=== PATIENT | male | born 2005 | race Caucasian/White ===

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

== ENCOUNTER 2023-04-28 20:52 | Emergency (ER) | payer OTHER, SELFPAY ==
[2023-04-28] VITALS (8 sets, daily range): BP systolic 124–125; BP diastolic 71–83; PULSE 77–94; RESP 18; TEMP 36.4; O2SAT 95–98
--- NOTE | 2023-04-28 21:19 | ED.GENADULT ---
HPI - General Adult General Chief complaint: Fall/Minor Trauma Stated complaint: hurt his left ankle and left wrist at work Time Seen by Provider: 04/28/23 21:06 History of Present Illness HPI narrative: pt fell 10-15 feet off a susanne face, landed on rock. Location was [facility] . Event was 1929. No LOC. No neck pain. CMS intact x 4, pt with pain reported left leg and left wrist. 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 Report of injury left wrist and ankle, though seems to be more the heel actually. Really hurts to walk on the left heel put pressure on that foot as well as ulnar deviate the left wrist as demonstrated. TTA upon arrival. Injury was about 2-1/2 hours at 630 with further recollection, prior to arrival in this emergency department. This was a fall to rock not a crash pad. He denies striking her injuring his abdomen. Has no neck or back pain. Not hit his head. There was no loss of consciousness. Has not had any difficulty breathing. Related Data Home Medications Medication Instructions Recorded Confirmed acetaminophen 500 mg capsule 500 mg PO Q4-6H PRN fever or pain 05/03/22 10/27/22 ibuprofen 200 mg capsule 400 mg PO Q4-6H PRN fever or pain 05/03/22 05/03/22 methylphenidate HCl 36 mg 36 mg PO QAM 05/03/22 10/27/22 tablet,extended release 24 hr (Concerta) Previous Rx's Medication Instructions Recorded omeprazole 40 mg capsule,delayed 40 mg PO DAILY #7 caps 10/27/22 release ondansetron 4 mg disintegrating 4 mg PO Q6H PRN nausea and 10/27/22 tablet vomiting #20 tabs Allergies Allergy/AdvReac Type Severity Reaction Status Date / Time No Known Drug Allergies Allergy Verified 10/27/22 14:13 Review of Systems Status of ROS: Reports: 6 or more systems reviewed and unremarkable except as noted in History and below PFSH PFSH Social History Smoking Status: Never smoker How often do you have a drink containing alcohol: never How often do you have six or more drinks on one occasion: Never AUDIT-C Alcohol total score: 0 Non-prescribed substance use: denies use Exam Narrative: Exam Narrative: Pleasant. Calm. Breathing easily. Does not appear to be actively bleeding. GCS 15. Pupils are 2 mm brisk and equal. Head looks to be atraumatic. Neck is supple nontender. Back nontender. Lungs are clear. Heart with mildly elevated rate and in a regular rhythm. Skin is warm and dry. There are abrasions at the base palmar surface of the left hand. One over the ulnar prominence. Dirt staining in the area. Abrasions warmth and some swelling at the left calf. Smaller abrasions also on the right mid lower leg. Right heel with pain to squeeze bilaterally. Does not have ankle malleolar area pain or pain to dorsum of the foot. No plantar bruising. Moving all extremities without difficulty. Did not test ambulatory ability though. Abdomen soft and nontender. No discomfort or instability to palpation of the pelvis. Const: Vital Signs, click to edit/add: Vital Signs - 24 hr 04/28/23 20:58 Temperature 97.6 F Pulse Rate [Left P ulse Oximeter] 92 Respiratory Rate 18 Blood Pressure [Ri ght Upper Arm] 124/83 Pulse Oximetry 98 Oxygen Delivery Me thod Room Air Documenting provider has reviewed patient's vital signs: yes Course Vital Signs Vital signs: Initial Vital Signs Temperature 97.6 F 04/28/23 20:58 Temperature Source Temporal Artery Scan 04/28/23 20:58 Pulse Rate 92 04/28/23 20:58 Pulse Rhythm Regular 04/28/23 20:58 Respiratory Rate 18 04/28/23 20:58 Blood Pressure 124/83 04/28/23 20:58 Blood Pressure Mean 96 04/28/23 20:58 Blood Pressure Position Sitting 04/28/23 20:58 Pulse Oximetry 98 04/28/23 20:58 Oxygen Delivery Method Room Air 04/28/23 20:58 Vital Signs Temperature 97.6 F 04/28/23 20:58 Pulse Rate 92 04/28/23 20:58 Respiratory Rate 18 04/28/23 20:58 Blood Pressure 124/83 04/28/23 20:58 Pulse Oximetry 98 04/28/23 20:58 Oxygen Delivery Method Room Air 04/28/23 20:58 Temperature 97.6 F 04/28/23 20:58 Pulse Rate 83 04/28/23 22:30 Respiratory Rate 18 04/28/23 20:58 Blood Pressure 125/71 04/28/23 21:12 Pulse Oximetry 97 04/28/23 22:30 Oxygen Delivery Method Room Air 04/28/23 20:58 Medical Decision Making MDM Narrative Medical decision making narrative: Mechanism is certainly concerning. Really though absent of evidence of injury or pain to palpation over the abdomen or thorax. I do not think that he has so much pain in his heel that it would be distracting. Imaging ordered for heel and wrist. Also given ibuprofen. Ice pack. X-rays of the heel reviewed by me to not a seem to show any bony abnormality. The left wrist is also absent of any acute bony abnormality. I appreciate some edema along the ulnar side of the wrist. Radiology over-read notes this edema wondering whether there might be some sort of occult fracture but recommending follow-up otherwise. Ordered for crutches. I do not think postop sandal are walking boot would be helpful as it is hurting primarily to bear weight on his heel. Did offer splint for his left wrist but he will have to manage crutches and he was not having so much discomfort that he felt it would be necessary; he declined. See patient discharge plan. Critical Care Time Critical Care Time Total Critical Care Time in Minutes: 35 Discharge Plan Discharge Clinical Impression: Injury of heel, Abrasion, Fall, Left wrist sprain Patient Disposition: Home w/ Parent or Adult Condition: Stable Additional Instructions: I would continue to ice these sore areas few times daily over the next few days. Hold the ice packs on with Franco wraps. Particularly for your wrist, if not improving over the next 7-10 days, consider follow-up for re-evaluation/imaging. Can take up to 800 mg of ibuprofen or up to 1000 mg of acetaminophen per dose. Alternative to the ibuprofen can take up to 500 mg naproxen 2 times daily. Remember that each tablet of Grey [place] contains 325 mg of acetaminophen. Grey Eagle from [facility]. Crutch over this next week to enable resting of your heel. I see begin to bear more weight will probably need stiff hiking boot with a deep heel cup/insole to support. Prescriptions: No Action methylphenidate HCl [Concerta] 36 mg tablet extended release 24hr 36 mg PO QAM Patient Comments: TAKE 1 TABLET BY MOUTH DAILY IN THE MORNING acetaminophen 500 mg capsule 500 mg PO Q4-6H PRN (Reason: fever or pain) ibuprofen 200 mg capsule 400 mg PO Q4-6H PRN (Reason: fever or pain) omeprazole 40 mg capsule,delayed release(DR/EC) 40 mg PO DAILY Qty: 7 0RF ondansetron 4 mg tablet,disintegrating 4 mg PO Q6H PRN (Reason: nausea and vomiting) Qty: 20 0RF Follow Up/Referrals: Provider,Not a Local [Primary Care Provider] - Stand Alone Forms: [facility] Info Instructions
--- NOTE | 2023-04-28 21:26 | CRLHL7_ITS ---
For Patients: As a result of the Cures Act, medical imaging exams and procedure reports are released immediately into your electronic medical record. You may view this report before your referring provider. If you have questions, please contact your health care provider. Indication: Trauma. Technique: Left calcaneus, 2 views. Comparison: None. Findings/Impression: Bones: Alignment is normal. No displaced fractures or bone lesions. Joint spaces: Unremarkable. Soft tissues: Unremarkable. Dictated by Dipak Dubose MD @ 04/28/2023 10:02:42 PM (Electronically Signed)
--- NOTE | 2023-04-28 21:26 | CRLHL7_ITS ---
For Patients: As a result of the Cures Act, medical imaging exams and procedure reports are released immediately into your electronic medical record. You may view this report before your referring provider. If you have questions, please contact your health care provider. Indication: Trauma. Technique: Left wrist, 3 views. Comparison: None. Findings/Impression: Bones: Alignment is normal. No displaced fractures or bone lesions. Joint spaces: Small joint effusion which could suggest occult injury. If pain persists, consider repeat radiograph in 7-10 days.. Soft tissues: Unremarkable. Dictated by Dipak Dubose MD @ 04/28/2023 10:04:35 PM (Electronically Signed)
[2023-04-28] MEDS: IBUPROFEN 400 MG TABLET 800 MG PO (21:39)
== END 2023-04-28 23:00 | disposition home or self-care (01) ==
PROVIDERS: Emergency Provider Family Medicine
DX: S90.512A Abrasion, left ankle, initial encounter (principal); W17.89XA Other fall from one level to another, initial encounter; Y99.0 Civilian activity done for income or pay; S63.502A Unspecified sprain of left wrist, initial encounter
CPT/HCPCS: 73110; 73650; 99284; 99291; A9270